=== PATIENT | male | born 1970 | race Caucasian/White ===

== ENCOUNTER 2020-06-26 16:36 | Outpatient (REF) | payer BC, SELFPAY ==
[2020-06-26 21:38] LABS: HCT 47.4 % (40.0-50.0); HGB 16.1 g/dL (13.5-17.5); MCV 91.3 fL (80-95); MPV 10.1 fL (8.0-11.0); Platelet Count 308 10^3/uL (130-400); RBC 5.19 10^6/uL (4.36-5.78); RDW 13.5 % (11.8-14.1); RDW-SD 45.8 fL; WBC 9.16 10^3/uL (4.4-10.8)
[2020-06-26 23:22] LABS: ALT 41 U/L (16-63); AST 15 U/L (15-37); Albumin 4.4 g/dL (3.4-5.0); Alkaline Phosphatase 132 U/L (46-116); Anion Gap 11.1 mmol/L (3-11); BUN 14 mg/dL (7-18); Bilirubin, Total 0.3 mg/dL (0.2-1.0); CO2 24.9 mmol/L (21.0-32.0); CREATININE 1.31 mg/dL (0.70-1.30); Calcium 9.4 mg/dL (8.5-10.1); Calculated LDL 133 mg/dL (<100); Chloride 104 mmol/L (98-107); Cholesterol 223 mg/dL (<200); Glucose 94 mg/dL (74-106); HDL Cholesterol 38 mg/dL (40-60); Potassium 4.4 mmol/L (3.5-5.1); Sodium 140 mmol/L (136-145); Triglyceride 263 mg/dL (<150)
[2020-06-27 00:12] LABS: Total Protein 7.2 g/dL (6.4-8.2)
== END 2020-06-26 16:56 ==
LOC: NCHCN 16:36
PROVIDERS: PCP Family Medicine; Visit Provider Family Medicine
DX: Z00.00 Encounter for general adult medical examination without abnormal findings (principal); E78.5 Hyperlipidemia, unspecified
CPT/HCPCS: 80053; 80061; 85027

== ENCOUNTER 2022-07-11 15:48 | Outpatient (REF) | payer BC, SELFPAY ==
[2022-07-11 14:45] LABS: CREATININE 1.2 mg/dL (0.70-1.30); Estimated GFR 73.67 (mL/min/1.73m2)
== END 2022-07-11 15:49 | disposition home or self-care (01) ==
LOC: NCHCN 15:48
PROVIDERS: PCP Family Medicine; Visit Provider Internal Medicine
DX: Z01.812 Encounter for preprocedural laboratory examination (principal)
CPT/HCPCS: 82565

== ENCOUNTER 2024-04-05 13:37 | Outpatient (REF) | payer BC, SELFPAY ==
[2024-04-05 16:15] LABS: ALT 48 U/L (16-63); AST 21 U/L (15-37); Albumin 4.2 g/dL (3.4-5.0); Alkaline Phosphatase 156 U/L (46-116); Anion Gap 6.1 mmol/L (3-11); BUN 12 mg/dL (7-18); Bilirubin, Total 0.37 mg/dL (0.2-1.0); CO2 29.9 mmol/L (21.0-32.0); CREATININE 1.1 mg/dL (0.70-1.30); Calcium 9.2 mg/dL (8.5-10.1); Calculated LDL 133 mg/dL (<100); Chloride 101 mmol/L (98-107); Cholesterol 236 mg/dL (<200); Estimated GFR 80.77 (mL/min/1.73m2); Glucose 152 mg/dL (74-106); HDL Cholesterol 40 mg/dL (40-60); Potassium 4.8 mmol/L (3.5-5.1); Sodium 137 mmol/L (136-145); Total Protein 7.3 g/dL (6.4-8.2); Triglyceride 316 mg/dL (<150); Vitamin D 25 Total 15.9 ng/mL (30-100)
== END 2024-04-05 13:38 | disposition home or self-care (01) ==
LOC: NCHCN 13:37
PROVIDERS: PCP Family Medicine; Visit Provider Family Medicine
DX: I10 Essential (primary) hypertension (principal); E78.5 Hyperlipidemia, unspecified; Z79.899 Other long term (current) drug therapy; Z00.00 Encounter for general adult medical examination without abnormal findings
CPT/HCPCS: 80053; 80061; 82306